=== PATIENT | female | born 1975 | race Caucasian/White ===

== ENCOUNTER 2016-11-25 07:06 | Emergency (ER) | payer OTHER ==
[2016-11-25 07:18] VITALS: BP 129/76; PULSE 79; RESP 18; TEMP 98.8
--- NOTE | 2016-11-25 07:40 | ED ---
General Adult HPI - General Chief complaint: Extremity Injury, Upper Stated complaint: hand pain, [facility] Time Seen by Provider: 11/25/16 07:15 Source: patient, RN notes reviewed Mode of arrival: ambulatory Limitations: no limitations - History of Present Illness Initial comments: This is a 41-year-old female presents emergency Department because her right third MCP joint is swollen and somewhat painful. Patient states she was at work when she went to reach for part she caught that knuckle on the machine and it isn't swollen and become painful. Patient has full range of motion. Patient hasn't no other pain in her fingers or hand. Patient did not break the skin. - Related Data Home Medications Medication Instructions Recorded Confirmed No Known Home Medications [No 11/25/16 11/25/16 Known Home Medications] Allergies Allergy/AdvReac Type Severity Reaction Status Date / Time No Known Allergies Allergy Verified 11/25/16 07:53 Review of Systems ROS Statement: Those systems with pertinent positive or pertinent negative responses have been documented in the HPI. ROS Other: All systems not noted in ROS Statement are negative. Past Medical History Additional Past Medical History / Comment(s): cervical fracture History of Any Multi-Drug Resistant Organisms: None Reported Past Surgical History: Tubal Ligation Additional Past Surgical History / Comment(s): halo brace Past Psychological History: No Psychological Hx Reported Smoking Status: Current every day smoker Past Alcohol Use History: None Reported Past Drug Use History: None Reported General Exam - General Exam Comments Initial Comments: GENERAL Patient is well-developed and well-nourished. Patient is in mild distress. EYES Patient's pupils are equal and round. Extraocular motion is intact SKIN Unremarkable NEURO The patient is alert and oriented 3 PYSCH Patient has normal interpersonal interactions. MUSCULOSKELETAL Patient's right third MCP joint is swollen and ecchymotic. Patient has full range of motion. Patient does not have any ligament laxity. Limitations: no limitations Course Vital Signs 11/25/16 07:15 Temperature 98.8 F Pulse Rate 79 Respiratory 18 Rate Blood Pressure 129/76 O2 Sat by Pulse 100 Oximetry Medical Decision Making - Medical Decision Making X-ray of the hand shows no acute abnormality or fracture. Disposition Clinical Impression: Contusion, hand Disposition: HOME SELF-CARE Condition: Good Instructions: Contusion in Adults (ED) Referrals: None,Stated [Primary Care Provider] - 1-2 days Time of Disposition: 08:24
--- NOTE | 2016-11-25 07:54 | XR ---
Right hand HISTORY: Trauma and pain 3 views of the right hand No comparisons Bone mineralization, joint spaces and alignment are maintained IMPRESSION: No fracture or dislocation is evident.
== END 2016-11-25 08:38 | disposition home or self-care (01) ==
LOC: EC 07:06
DX: S60.221A Contusion of right hand, initial encounter (principal); F17.200 Nicotine dependence, unspecified, uncomplicated; W23.0XXA Caught, crushed, jammed, or pinched between moving objects, initial encounter; Y92.69 Other specified industrial and construction area as the place of occurrence of the external cause; Y99.0 Civilian activity done for income or pay
CPT/HCPCS: 99283

== ENCOUNTER → 2019-10-10 | Outpatient (CLI) | payer OTHER ==
--- NOTE | 2019-10-10 11:07 | USB ---
Reason for exam: clinical finding. Indicated problem(s): palpable abnormality in the right breast. Physical Findings: Nurse Summary: 1.5cm moves, right, 11 o'clock (nurse flako). US Breast RT Right complete breast ultrasound includes all four quadrants, the retroareolar region and axilla. Finding demonstrates a 10 x 5 x 10mm oval, cystic lesion at 10 o'clock BB and a 28 x 7 x 26mm cystic cluster at 11 o'clock. Fibrocystic changes. Multiple cysts visualized. These results were verbally communicated with the patient and result sheet given to the patient on 10/10/19. ASSESSMENT: Benign, BI-RAD 2 RECOMMENDATION: Follow-up diagnostic mammogram of both breasts. Manage on a clinical basis with regard to palpable.
--- NOTE | 2019-10-10 11:08 | MM ---
Reason for exam: clinical finding. MG Diagnostic Mammo w CAD [place] Bilateral CC and MLO view(s) were taken. The breast tissue is extremely dense which could obscure a lesion on mammography. Finding: There are typically benign vascular, dystrophic, round, diffuse/scattered, regional calcifications in both breasts. There is no discrete abnormality. These results were verbally communicated with the patient and result sheet given to the patient on 10/10/19. ASSESSMENT: Benign, BI-RAD 2 RECOMMENDATION: Routine screening mammogram of both breasts in 1 year.
== END | disposition home or self-care (01) ==
LOC: RADUSWWP 09:25
PROVIDERS: ATTEND Family Medicine
DX: N63.10 Unspecified lump in the right breast, unspecified quadrant (principal); N60.01 Solitary cyst of right breast; R92.8 Other abnormal and inconclusive findings on diagnostic imaging of breast
CPT/HCPCS: 77066

== ENCOUNTER 2020-04-03 12:21 | Day surgery (SDC) | payer OTHER ==
[2020-04-03 12:40] VITALS: TEMP 98.1
[2020-04-03] MEDS ORDERED: ALPRAZolam 0.5 MG TAB PO STA (12:48)
--- NOTE | 2020-04-03 14:07 | US ---
ULTRASOUND GUIDED FNA THYROID BIOPSY: CLINICAL HISTORY: Request for 2 right-sided and 2 left-sided thyroid nodules FINDINGS: The procedure was explained to the patient. The risks, complications, benefits and alternatives were discussed and any questions were answered. Informed consent was obtained. Patient was placed supin e on the ultrasound table and prepped and draped in the usual sterile fashion. Utilizing a 25 gauge needle, five passes were made into the 2 right-sided thyroid nodules. The patient had a fear of need les and became lightheaded and the exam was discontinued. A single sample into the large cyst within the left lobe of the thyroid was obtained but likely will be nondiagnostic. Note is made that nodule appears to be completely cystic Patient was stable throughout the procedure. Pathology is pending. All elements of maximal barrier technique were utilized. IMPRESSION: 1. Successful ultrasound guided FNA thyroid biopsy of the requested right thyroid nodules. Patient h ad a fear of needles became lightheaded and the left-sided thyroid nodules on could not be sampled. S ee above.
[2020-04-03 14:49] VITALS: RESP 16
[2020-04-03 14:50] VITALS: BP 115/73; PULSE 65
== END 2020-04-03 14:20 | disposition home or self-care (01) ==
LOC: RADPROMAIN 12:21
PROVIDERS: ATTEND Family Medicine
DX: D34 Benign neoplasm of thyroid gland (principal); E04.2 Nontoxic multinodular goiter
CPT/HCPCS: 10005; 10006; 88173; 88305

== ENCOUNTER → 2020-06-26 | Outpatient (CLI) | payer OTHER ==
[2020-06-26 09:03] LABS: Basophils % (A) 0 %; Eosinophils # (A) 0.2 k/uL (0-0.7); Eosinophils % (A) 2 %; HCT 40.1 % (34.0-46.0); HGB 13.2 gm/dL (11.4-16.0); Lymphocytes # (A) 2.3 k/uL (1.0-4.8); Lymphocytes % (A) 25 %; MCHC 32.8 g/dL (31.0-37.0); MCV 88.4 fL (80.0-100.0); Mean Platelet Volume 8.1; Monocytes # (A) 0.4 k/uL (0-1.0); Monocytes % (A) 4 %; Neutrophils # (A) 6.4 k/uL (1.3-7.7); Neutrophils % (A) 68 %; Platelet Count 277 k/uL (150-450); RBC 4.54 m/uL (3.80-5.40); RDW 14.3 % (11.5-15.5); WBC 9.4 k/uL (3.8-10.6)
== END | disposition home or self-care (01) ==
LOC: LABPAT 08:13
PROVIDERS: ATTEND Obstetrics & Gynecology Obstetrics
DX: Z01.818 Encounter for other preprocedural examination (principal); N92.0 Excessive and frequent menstruation with regular cycle; N94.6 Dysmenorrhea, unspecified; D25.9 Leiomyoma of uterus, unspecified
CPT/HCPCS: 36415; 85025

== ENCOUNTER 2020-07-06 10:18 | Day surgery (SDC) | payer OTHER ==
[2020-07-02 13:04] VITALS: BMI 16.7
--- NOTE | 2020-07-03 15:12 | HP ---
HISTORY AND PHYSICAL HISTORY OF PRESENT ILLNESS: This is a 45-year-old 2, para 2, that presented for evaluation of heavy periods. Patient states her periods have been increasing in heaviness over the last few years. Her last menstrual period in early May lasted for 7+ days, but she also notes her periods have become irregular. Her most recent period was very heavy with clots and dysmenorrhea. She notes her pain to be severe with her periods. She does have a past history of abnormal/irregular menstrual bleeding, but she has never been evaluated for it. Uterus was imaged with an ultrasound revealing a 9 cm uterus and questionable 2 cm uterine fibroid. PAST MEDICAL HISTORY: Significant for an abnormal Pap smear approximately 22 years ago. PAST SURGICAL HISTORY: Cryotherapy, halo ablation that was done in [place], C6 fracture, and tubal ligation was [place] [address] Roberson. MEDICATIONS: She is on ibuprofen 800 mg as needed and Selsun Blue for dandruff. ALLERGIES: BEE STINGS and KEFLEX. FAMILY MEDICAL HISTORY: Noncontributory. FIGHTER PILOT HISTORY: Menarche was at age 16, she is a 2, para 2 with 2 prior vaginal deliveries. Menstrual cycles are as above, and she is using tubal ligation for contraception. SOCIAL HISTORY: Significant for she is a half pack to 1 pack per day smoker. Denies alcohol or drug use. REVIEW OF SYSTEMS: She denies fevers, chills, night sweats. She denies shortness of breath, wheezing, or cough. She denies nausea, vomiting, diarrhea, constipation. She denies vaginal discharge, but does admit to regular heavy menstrual cycles. She denies urinary urgency or frequency. PHYSICAL EXAM: Vital signs are noted to be stable. On physical exam, this is a well-nourished, well-developed, non female in no acute distress, breathing is noted to be nonlabored. Heart has a regular rate and rhythm. Abdomen is soft and nontender. On genitourinary exam, uterus is noted to be mobile with no adnexal tenderness. The cervix is noted to be nontender. ASSESSMENT: An excessive or heavy menstrual bleeding with known small uterine fibroids. The patient is counseled on options for treatment of her heavy menstrual bleeding. Given the fact that she has had a tubal ligation in the past, she requests endometrial ablation. ACOG pamphlet is given to the patient. All questions are answered. Risks are reviewed with the patient including failure, uterine perforation, hematometra. The patient states understanding and wishes to proceed. We will plan to proceed with hysteroscopy, dilation and curettage, endometrial ablation. All questions were answered to the patient's satisfaction and will proceed. MMODL / IJN: [id number] /
[~2020-07-06 10:18] MED LIST: DEXAMETHASONE SOD PHOSPHATE 4 MG/ML 1 ML VIAL IV ONE; HYDROmorphone 0.5 MG/0.5 ML SYRINGE IVP PRN; LACTATED RINGERS 1,000 ML IV SCH; LIDOCAINE 1% (10MG/ML) FOR IV START INTRADERMA PRN; ONDANSETRON 4 MG/2 ML VIAL IVP ONE; Pre Op ABX Message 1 EACH MISC MISCELLANE ONE; SCOPOLAMINE 1.5MG/72HR PATCH TRANSDERM ONE
[2020-07-06] MEDS ORDERED: fentaNYL (PF) 50 MCG/ML 2 ML AMP ONE (11:44)
[2020-07-06] MEDS ORDERED: PROPOFOL 10 MG/ML 20 ML VIAL IV ONE (11:44)
[2020-07-06] MEDS ORDERED: LIDOCAINE 1% INJ 10MG/ML (20 ML MDV) ONE (11:44)
[2020-07-06] MEDS ORDERED: MIDAZOLAM 2 MG/2 ML VIAL ONE (11:44)
[2020-07-06] MEDS ORDERED: KETOROLAC 15 MG/ML 1 ML VIAL ONE (11:44)
[2020-07-06 12:36] VITALS: TEMP 97
[2020-07-06 13:17] VITALS: PULSE 67
--- NOTE | 2020-07-06 13:31 | P.OP ---
Date of Procedure: 07/06/20 Preoperative Diagnosis: Menorrhagia Postoperative Diagnosis: Same Procedure(s) Performed: Hysteroscopy, dilation and curettage endometrial ablation with NovaSure Anesthesia: MAC Surgeon: Zena Jean Estimated Blood Loss (ml): 5 IV fluids (ml): 300 Urine output (ml): 0 Pathology: other (Endometrial curettings) Condition: stable Disposition: PACU Indications for Procedure: Heavy menstrual bleeding Operative Findings: Proliferative endometrium Description of Procedure: Patient was seen in the preoperative area and informed consent was obtained, patient was then taken back to the operating suite. General anesthesia was then obtained by the anesthesia department. She was then prepped and draped in the normal sterile fashion in the dorsal lithotomy position. I Guild catheter was attempted to drain the bladder no urine was obtained. A weighted speculum was placed in the posterior vaginal vault intralipids the cervix was easily visualized and grasped with a single-tooth tenaculum. Endocervical canal was then dilated to 15-Cameroonian, a hysteroscope was then placed through the cervix and toward the endometrial cavity. A proliferative endometrium was noted. The hysteroscope was removed and sharp curettage was performed. The specimen was then sent to pathology for analysis. The NovaSure device was then opened and set to the patient's uterine measurements. The cavity assessment was then passed in the cycle allowed to complete. Once time and the NovaSure was removed without difficulty. The single- tooth tenaculum was taken off of the anterior lip the cervix and hemostasis was appreciated. All counts were noted be correct 2. Patient tolerated procedure well and was taken the recovery room awake in stable condition.
[2020-07-06 13:42] VITALS: BP 137/67; RESP 18
--- NOTE | 2020-07-08 12:39 | CDI ---
Date: 07.08.2020 CDS/Supervisor Sunglasses Name: Ginger Anthony Phone: If any questions, call Marly Loza E Learning Coordinator at [phone] Patient Name: Melanie Redd Admit Date 07.06.20 Discharge Date: 07.06.20 ATTENTION: The [facility] Coding Staff appreciate your assistance in clarifying documentation. Please respond to the clarification below the line at the bottom and electronically sign. The [facility] Coding staff will review the response and follow-up if needed. Please note: Queries are made part of the Legal Health Record. If you have any questions, please contact the E Learning Coordinator. Dear Dr. Jean In order to code to the greatest specificity and for the greatest reimbursement I need the following information: You have documented in your H&P under HPI her periods have become irregular, then under the ROS you have documented regular heavy menstrual cycles. Please specify whether the pts menstrual cycles are regular or irregular. Thank you for your kind consideration. MTDD
== END 2020-07-06 13:56 | disposition home or self-care (01) ==
LOC: OR 10:18
PROVIDERS: ATTEND Obstetrics & Gynecology Obstetrics
DX: N85.8 Other specified noninflammatory disorders of uterus (principal); N92.1 Excessive and frequent menstruation with irregular cycle; N94.6 Dysmenorrhea, unspecified; Z88.1 Allergy status to other antibiotic agents; Z91.030 Bee allergy status; Z87.42 Personal history of other diseases of the female genital tract; Z98.890 Other specified postprocedural states; Z87.81 Personal history of (healed) traumatic fracture; Z98.51 Tubal ligation status; F17.210 Nicotine dependence, cigarettes, uncomplicated; D25.9 Leiomyoma of uterus, unspecified; J44.9 Chronic obstructive pulmonary disease, unspecified; E07.9 Disorder of thyroid, unspecified
CPT/HCPCS: 58563; 81025; 88305; J2250; J1100; J2405; J2001; J3010; J1885; J2704